=== PATIENT | male | born 2000 | race Caucasian/White ===

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

== ENCOUNTER 2022-04-22 14:45 | Emergency (ER) | payer OTHER, SELFPAY ==
[2022-04-22] MEDS ORDERED: Sodium Chloride 0.9% 1,000 ML ONE (15:21)
[2022-04-22] MEDS ORDERED: Ondansetron PF 4 MG/2 ML Vial ONE (15:22)
[2022-04-22 15:31] LABS: #Basophils 0.1 thou/uL (0.0-0.2); #Eosinphils 0.3 thou/uL (0.0-0.7); #Lymphocytes 2.2 thou/uL (1.20-3.40); #Monocytes 0.9 thou/uL (0.11-0.59); #Neutrophils 4.8 thou/uL (1.40-6.50); %Eosinophils 3.4 % (0.0-10.0); %Lymphocytes 26.9 % (28.0-48.0); %Monocytes 11.1 % (0.0-4.0); %Neutrophils 57.6 % (31.0-61.0); Hemoglobin 14.8 g/dL (14.0-18.0); Mean Corpuscular HGB CONC 32.1 g/dL (32.0-36.0); Mean Corpuscular Hemoglobin 29.3 pg (25.0-35.0); Mean Corpuscular Volume 91.2 fL (78.0-98.0); Platelet Count 255 thou/uL (130-400); RBC Distribution Width 11.1 % (11.5-14.5); Red Blood Cell (RBC) Count 5.07 mill/uL (4.00-5.20); White Blood Cell (WBC) Count 8.3 thou/uL (4.8-10.8)
[2022-04-22 15:50] LABS: ALT (SGPT) 25 U/L (8-55); AST (SGOT) 24 U/L (10-45); Albumin 4.9 g/dL (3.5-5.0); Alkaline Phosphatase 101 U/L (50-130); Anion Gap 17 mmol/L (10-20); BUN (Urea Nitrogen) 20 mg/dL (8.4-21.0); Calc. Creatinine Clearance 0 mL/min (70-130); Calcium 10.2 mg/dL (7.8-10.44); Carbon Dioxide 25 mmol/L (22-29); Chloride 98 mmol/L (98-107); Globulin 2.9 g/dL (2.4-3.5); Glucose 94 mg/dL (70-105); Lipase 9 U/L (8-78); Protein, Total 7.8 g/dL (6.0-8.3); Sodium 136 mmol/L (136-145)
[2022-04-22 15:54] LABS: Bilirubin Negative (Negative); Blood, Urine Negative (Negative); Clarity Clear (Clear); Glucose, Urine (Dipstick) Negative (Negative); Ketone, Urine Negative (Negative); Leukocyte Negative (Negative); Nitrite Negative (Negative); Protein, Urine (Dipstick) 100 mg/dL (Neg-Trace); Urobilinogen 0.2 mg/dL (Less than 2)
[2022-04-22 15:56] LABS: Specific Gravity, Urine 1.027 (1.002-1.036)
[2022-04-22 16:05] LABS: RBC/HPF 0-3 HPF (0-3); WBC/HPF 0-3 HPF (0-3)
[2022-04-22 16:06] LABS: Bacteria/HPF 1+ HPF (None Seen); Squamous Epithelial 0-3 HPF (0-3)
[2022-04-22 16:07] LABS: Other Microscopic Description RARE OVAL FAT BODY
== END 2022-04-22 16:15 | disposition home or self-care (01) ==
LOC: NAV ERS 14:45
DX: E86.0 Dehydration (principal); R11.2 Nausea with vomiting, unspecified
CPT/HCPCS: 80053; 81003; 81015; 83690; 85025; 96361; 96374; J2405; J7050